=== PATIENT | female | born 1960 | race Caucasian/White ===

== ENCOUNTER 2018-07-29 12:31 | Emergency (ER) | payer MEDICAID ==
[~2018-07-29] VITALS: Ht 157.5 cm; Wt 77.1 kg
--- NOTE | 2018-07-29 12:50 | NUR ---
patient seen and examine by Dr. Vazquez
--- NOTE | 2018-07-29 13:19 | NUR ---
Taken down for ct.
--- NOTE | 2018-07-29 13:22 | NUR ---
pt. back from CT.
[2018-07-29 13:31] LABS: BASOPHILS % (AUTO) 0.6 % (0.0-2.0); EOSINOPHILS # (AUTO) 0.1 K/uL (0.0-0.7); HEMOGLOBIN 14.1 g/dL (10.9-14.3); LYMPHOCYTES # (AUTO) 1.9 K/uL (20.0-40.0); LYMPHOCYTES % (AUTO) 34.7 % (20.5-51.5); MEAN CORPUSCULAR HEMOGLOBIN 30.5 uug (24.7-32.8); MEAN CORPUSCULAR HGB CONC 34 g/dL (32.3-35.6); MEAN CORPUSCULAR VOLUME 90.6 fL (75.5-95.3); MONOCYTES # (AUTO) 0.4 K/uL (2.0-10.0); MONOCYTES % (AUTO) 7.6 % (0.0-11.0); NEUTROPHILS % (AUTO) 55.1 % (38.5-71.5); PLATELET COUNT (AUTO) 216 K/uL (179-408); RED BLOOD CELL COUNT(AUTO) 4.64 MIL/uL (3.63-4.92); WHITE BLOOD COUNT (AUTO) 5.4 K/uL (3.8-11.8)
[2018-07-29 13:38] LABS: CREATININE 0.6 mg/dL (0.6-1.3); POTASSIUM 4.5 mmol/L (3.5-5.1)
[2018-07-29 14:59] VITALS: BP 141/89
--- NOTE | 2018-07-29 15:00 | NUR ---
DCD instructions and prescription given to pt. who verbalized understanding. pt. left room AAOX4 Vitals stable no c/of pain
== END 2018-07-29 15:01 | disposition home or self-care (01) ==
LOC: ER 12:31
DX: H53.30 Unspecified disorder of binocular vision (principal); R53.1 Weakness; R11.0 Nausea
CPT/HCPCS: 36415; 70030-TC; 70450; 85025; 93005; A4663

== ENCOUNTER 2018-12-18 19:44 | Emergency (ER) | payer MEDICAID ==
[~2018-12-18] VITALS: Ht 154.9 cm; Wt 77.1 kg
--- NOTE | 2018-12-18 20:20 | NUR ---
Dr. Busch at bedside for MSE.
[2018-12-18 20:21] LABS: *BILIRUBIN,URIN NEGATIVE (NEGATIVE); *BLOOD, URINE 3+ (NEGATIVE); *COLOR,URINE PINK (YELLOW); *KETONES,URINE NEGATIVE (NEGATIVE); *UROBILINOGEN,URINE 0.2 E.U./dl (NORMAL); LEUKOCYTE ESTERASE ,URINE TRACE (NEGATIVE); NITRITE, URINE NEGATIVE (NEGATIVE); PH,URINE 6.5 (5.0-8.0); UGLUCOSE NEGATIVE (NEGATIVE)
[2018-12-18 20:29] LABS: *CLARITY,URINE HAZY (CLEAR)
[2018-12-18 20:30] LABS: RBC,URINE 80-100 /HPF (0-3)
[2018-12-18 20:31] LABS: SQUAMOUS EPITHELIAL CELL,UR FEW /HPF (NONE SEEN)
--- NOTE | 2018-12-18 20:45 | NUR ---
Pt out of ER for CT.
--- NOTE | 2018-12-18 20:54 | NUR ---
Pt back to ER from CT.
[2018-12-18] MEDS ORDERED: SULFAMETH/TRIMETH 800/160 MG TABLET PO ONE (21:00)
--- NOTE | 2018-12-18 21:04 | NUR ---
Patient discharged to home in stable conditon. Written and verbal after care instructions given. Patient verbalizes understanding of instructions. Pt ambulated out of ER with steady gait, no acute signs of distress, VSS, all belongings taken.
[2018-12-18 21:05] VITALS: BP 145/90
[2018-12-18] MEDS ORDERED: SULFAMETH/TRIMETH 800/160 MG TABLET ONE (21:05)
== END 2018-12-18 21:07 | disposition home or self-care (01) ==
LOC: ER 19:45
DX: N20.0 Calculus of kidney (principal); N39.0 Urinary tract infection, site not specified; F17.200 Nicotine dependence, unspecified, uncomplicated
CPT/HCPCS: A4663

== ENCOUNTER 2019-04-04 20:35 | Emergency (ER) | payer MEDICAID, OTHER ==
[~2019-04-04] VITALS: Ht 157.5 cm; Wt 77.1 kg
--- NOTE | 2019-04-04 20:53 | NUR ---
Dr. Ren at [facility] for [facility].
[2019-04-04] MEDS ORDERED: ONDANSETRON ODT 4 MG TAB.RAPDIS ONE (20:59)
[2019-04-04] MEDS ORDERED: HYDROCODONE/APAP 5-325MG TABLET ONE (20:59)
[2019-04-04] MEDS ORDERED: HYDROCODONE/APAP 5-325MG TABLET PO ONE (21:00)
[2019-04-04] MEDS ORDERED: ONDANSETRON ODT 4 MG TAB.RAPDIS SL ONE (21:00)
--- NOTE | 2019-04-04 21:01 | NUR ---
Xray at bedside.
[2019-04-04 21:30] VITALS: BP 119/80
== END 2019-04-04 21:30 | disposition home or self-care (01) ==
LOC: ER 20:42
DX: S57.82XA Crushing injury of left forearm, initial encounter (principal); F17.290 Nicotine dependence, other tobacco product, uncomplicated; Z71.6 Tobacco abuse counseling; W23.0XXA Caught, crushed, jammed, or pinched between moving objects, initial encounter; Y93.89 Activity, other specified; Y92.89 Other specified places as the place of occurrence of the external cause; Y99.8 Other external cause status
CPT/HCPCS: 73090; A4663; Q0162

== ENCOUNTER 2019-05-02 13:07 | Emergency (ER) | payer OTHER ==
[~2019-05-02] VITALS: Ht 154.9 cm; Wt 72.6 kg
--- NOTE | 2019-05-02 13:25 | NUR ---
Patient seen by Dr Kelsey. for Female Urogenital Problems. Patient is A&O x3
[2019-05-02 13:36] LABS: *BILIRUBIN,URIN NEGATIVE (NEGATIVE); *CLARITY,URINE CLEAR (CLEAR); *COLOR,URINE YELLOW (YELLOW); *KETONES,URINE NEGATIVE (NEGATIVE); *UROBILINOGEN,URINE 0.2 E.U./dl (NORMAL); LEUKOCYTE ESTERASE ,URINE 1+ (NEGATIVE); NITRITE, URINE NEGATIVE (NEGATIVE); PH,URINE 6.5 (5.0-8.0); UGLUCOSE NEGATIVE (NEGATIVE)
[2019-05-02 13:39] LABS: *BLOOD, URINE TRACE (NEGATIVE)
[2019-05-02 13:43] LABS: BACTERIA,URINE FEW /HPF (NONE SEEN); RBC,URINE NONE SEEN /HPF (0-3); SQUAMOUS EPITHELIAL CELL,UR FEW /HPF (NONE SEEN); WBC,URINE 0-3 /HPF (0-3)
[2019-05-02 13:49] LABS: BASOPHILS % (AUTO) 0.6 % (0.0-2.0); HEMATOCRIT 41.5 % (31.2-41.9); HEMOGLOBIN 13.8 g/dL (10.9-14.3); LYMPHOCYTES # (AUTO) 1.4 K/uL (20.0-40.0); LYMPHOCYTES % (AUTO) 36.9 % (20.5-51.5); MEAN CORPUSCULAR HGB CONC 33 g/dL (32.3-35.6); MEAN CORPUSCULAR VOLUME 93.1 fL (75.5-95.3); MONOCYTES # (AUTO) 0.3 K/uL (2.0-10.0); MONOCYTES % (AUTO) 8.7 % (0.0-11.0); NEUTROPHILS % (AUTO) 52.8 % (38.5-71.5); PLATELET COUNT (AUTO) 193 K/uL (179-408); RED BLOOD CELL COUNT(AUTO) 4.46 MIL/uL (3.63-4.92); WHITE BLOOD COUNT (AUTO) 3.8 K/uL (3.8-11.8)
--- NOTE | 2019-05-02 13:50 | NUR ---
Associate Property Manager assumes care- patient isAOx4, waiting for U/S@this time.
[2019-05-02 13:54] LABS: CREATININE 0.6 mg/dL (0.6-1.3); POTASSIUM 3.9 mmol/L (3.5-5.1)
--- NOTE | 2019-05-02 14:12 | NUR ---
Patient discharged home with Rx for pain per Dr Kelsey. Pain medication offered, and patient refused stating that she has to go to work after this visit. MD aware. Patient stable, no distress noted. No SOB or respiratory distress observed or reported by patient.
== END 2019-05-02 14:21 | disposition home or self-care (01) ==
LOC: ER 13:07
DX: M54.5 Low back pain (principal); F17.200 Nicotine dependence, unspecified, uncomplicated
CPT/HCPCS: 36415; 85025; 87086; A4663

== ENCOUNTER 2019-06-12 19:05 | Emergency (ER) | payer OTHER ==
[~2019-06-12] VITALS: Ht 154.9 cm; Wt 77.1 kg
--- NOTE | 2019-06-12 19:25 | NUR ---
Dr. Beckham at bedside for MSE.
[2019-06-12] MEDS ORDERED: IV NORMAL SALINE 1000 ML BAG IV ONE (20:00)
[2019-06-12 20:01] LABS: BASOPHILS # (AUTO) 0.1 K/uL (0.0-8.0); BASOPHILS % (AUTO) 1.1 % (0.0-2.0); EOSINOPHILS # (AUTO) 0.1 K/uL (0.0-0.7); EOSINOPHILS % (AUTO) 1.5 % (0.0-7.0); HEMATOCRIT 41.6 % (31.2-41.9); HEMOGLOBIN 13.9 g/dL (10.9-14.3); LYMPHOCYTES # (AUTO) 2.1 K/uL (20.0-40.0); LYMPHOCYTES % (AUTO) 37.9 % (20.5-51.5); MEAN CORPUSCULAR HEMOGLOBIN 31.2 uug (24.7-32.8); MEAN CORPUSCULAR HGB CONC 33 g/dL (32.3-35.6); MEAN CORPUSCULAR VOLUME 93.3 fL (75.5-95.3); MONOCYTES # (AUTO) 0.6 K/uL (2.0-10.0); MONOCYTES % (AUTO) 10.3 % (0.0-11.0); NEUTROPHILS # (AUTO) 2.7 K/uL (1.8-8.9); NEUTROPHILS % (AUTO) 49.2 % (38.5-71.5); PLATELET COUNT (AUTO) 211 K/uL (179-408); RED BLOOD CELL COUNT(AUTO) 4.45 MIL/uL (3.63-4.92); WHITE BLOOD COUNT (AUTO) 5.5 K/uL (3.8-11.8)
--- NOTE | 2019-06-12 20:10 | NUR ---
Xray at bedside.
[2019-06-12 20:14] LABS: POTASSIUM 4.2 mmol/L (3.5-5.1)
[2019-06-12 20:20] LABS: BILIRUBIN,DIRECT 0.1 mg/dL (0.0-0.2); BILIRUBIN,TOTAL 0.6 mg/dL (0.2-1.0); TOTAL PROTEIN, SERUM 6.8 g/dL (6.4-8.2)
[2019-06-12 20:37] LABS: *BILIRUBIN,URIN NEGATIVE (NEGATIVE); *COLOR,URINE YELLOW (YELLOW); *KETONES,URINE NEGATIVE (NEGATIVE); *UROBILINOGEN,URINE 0.2 E.U./dl (NORMAL); LEUKOCYTE ESTERASE ,URINE TRACE (NEGATIVE); NITRITE, URINE NEGATIVE (NEGATIVE); UGLUCOSE NEGATIVE (NEGATIVE)
[2019-06-12 21:26] LABS: *BLOOD, URINE TRACE (NEGATIVE); *CLARITY,URINE SLIGHTLY HAZY (CLEAR)
[2019-06-12 21:28] LABS: BACTERIA,URINE FEW /HPF (NONE SEEN); MUCUS,URINE FEW /LPF (0-FEW); SQUAMOUS EPITHELIAL CELL,UR MODERATE /HPF (NONE SEEN)
--- NOTE | 2019-06-12 21:54 | NUR ---
Patient discharged to home in stable conditon. Written and verbal after care instructions given. Patient verbalizes understanding of instructions. Pt ambulated out of ER with steady gait, no acute signs of distress, VSS, all belongings taken, IV site discontinued.
[2019-06-12 22:01] VITALS: BP 145/80
== END 2019-06-12 22:01 | disposition home or self-care (01) ==
LOC: ER 19:08
DX: M54.5 Low back pain (principal); M54.6 Pain in thoracic spine; M62.838 Other muscle spasm; D35.00 Benign neoplasm of unspecified adrenal gland; R31.29 Other microscopic hematuria; F17.200 Nicotine dependence, unspecified, uncomplicated
CPT/HCPCS: 36415; 70030-TC; 71045; 83690; 85025; 87086; 93005; A4663; J7030

== ENCOUNTER 2019-06-29 12:12 | Emergency (ER) | payer OTHER ==
[~2019-06-29] VITALS: Ht 154.9 cm; Wt 77.1 kg
[2019-06-29] MEDS ORDERED: ACET-73 PO (12:33)
[2019-06-29] MEDS ORDERED: ASPI81TA31 PO (12:33)
--- NOTE | 2019-06-29 12:33 | NUR ---
DEAN ORNELAS at the bedside for MSE.
[2019-06-29 13:15] LABS: BASOPHILS # (AUTO) 0.1 K/uL (0.0-8.0); BASOPHILS % (AUTO) 1.3 % (0.0-2.0); EOSINOPHILS # (AUTO) 0.1 K/uL (0.0-0.7); EOSINOPHILS % (AUTO) 1.4 % (0.0-7.0); HEMATOCRIT 41.7 % (31.2-41.9); HEMOGLOBIN 14.1 g/dL (10.9-14.3); LYMPHOCYTES # (AUTO) 1.5 K/uL (20.0-40.0); MEAN CORPUSCULAR HEMOGLOBIN 30.9 uug (24.7-32.8); MEAN CORPUSCULAR HGB CONC 34 g/dL (32.3-35.6); MEAN CORPUSCULAR VOLUME 91.2 fL (75.5-95.3); MONOCYTES # (AUTO) 0.3 K/uL (2.0-10.0); MONOCYTES % (AUTO) 7.8 % (0.0-11.0); NEUTROPHILS # (AUTO) 1.8 K/uL (1.8-8.9); NEUTROPHILS % (AUTO) 48.5 % (38.5-71.5); PLATELET COUNT (AUTO) 202 K/uL (179-408); RED BLOOD CELL COUNT(AUTO) 4.58 MIL/uL (3.63-4.92); WHITE BLOOD COUNT (AUTO) 3.8 K/uL (3.8-11.8)
[2019-06-29 13:21] LABS: CREATININE 0.7 mg/dL (0.6-1.3); POTASSIUM 4.2 mmol/L (3.5-5.1)
[2019-06-29 13:36] LABS: BILIRUBIN,DIRECT 0.2 mg/dL (0.0-0.2); BILIRUBIN,TOTAL 0.9 mg/dL (0.2-1.0); TOTAL PROTEIN, SERUM 7.2 g/dL (6.4-8.2)
[2019-06-29 13:52] VITALS: BP 151/89
--- NOTE | 2019-06-29 13:52 | NUR ---
Patient discharged to home in stable conditon. Written and verbal after care instructions given. Patient verbalizes understanding of instructions.
== END 2019-06-29 13:53 | disposition home or self-care (01) ==
LOC: ER 12:13
DX: I49.3 Ventricular premature depolarization (principal); R00.2 Palpitations; G89.29 Other chronic pain; M25.552 Pain in left hip; F17.200 Nicotine dependence, unspecified, uncomplicated; Z79.82 Long term (current) use of aspirin; Z79.899 Other long term (current) drug therapy
CPT/HCPCS: 36415; 70030-TC; 71045; 84443; 85025; 93005; A4663

== ENCOUNTER 2019-10-24 12:55 | Emergency (ER) | payer OTHER ==
[~2019-10-24] VITALS: Ht 157.5 cm; Wt 73.5 kg
[~2019-10-24 12:55] MED LIST: ACET-73 PO; ASPI81TA31 PO
--- NOTE | 2019-10-24 13:15 | NUR ---
PATIENT WAS MSE BY DR ZARAGOZA IN ROOM 02A. PATIENT A & O X4.
--- NOTE | 2019-10-24 13:29 | NUR ---
Patient discharged to home in stable condition. Written and verbal after care instructions given. Patient verbalizes understanding of instructions. Stressed follow up or return to ER for worsening s/s.
[2019-10-24 13:33] VITALS: BP 150/70
== END 2019-10-24 13:35 | disposition home or self-care (01) ==
LOC: ER 12:58
DX: K57.92 Diverticulitis of intestine, part unspecified, without perforation or abscess without bleeding (principal); F17.200 Nicotine dependence, unspecified, uncomplicated; M16.12 Unilateral primary osteoarthritis, left hip; Z79.82 Long term (current) use of aspirin
CPT/HCPCS: A4663

== ENCOUNTER 2021-09-15 09:47 | Emergency (ER) | payer OTHER ==
[~2021-09-15] VITALS: Ht 154.9 cm; Wt 74.8 kg
--- NOTE | 2021-09-15 09:58 | NUR ---
Patient ambulatory, alert and orientedx4 complaints of pain on urination for 4 days and lower back 8/10. History of kidney stone 3 years ago. Denies nausea/vomiting, abdominal pain. Vitals stable.
--- NOTE | 2021-09-15 10:01 | NUR ---
UA sent to lab.
--- NOTE | 2021-09-15 10:02 | NUR ---
MD at bedside, ,medical screeening exam in process.
[2021-09-15 10:22] LABS: *BLOOD, URINE 2+ (NEGATIVE); *COLOR,URINE Orange (YELLOW); *KETONES,URINE 1+ (NEGATIVE); LEUKOCYTE ESTERASE ,URINE 3+ (NEGATIVE); NITRITE, URINE POSITIVE (NEGATIVE)
[2021-09-15 10:26] LABS: *BILIRUBIN,URIN 2+ (NEGATIVE); UGLUCOSE 1+ (NEGATIVE)
[2021-09-15 10:27] LABS: *CLARITY,URINE SLIGHTLY HAZY (CLEAR)
[2021-09-15] MEDS ORDERED: HYDROCODONE/APAP 5-325MG TABLET ONE (10:36)
[2021-09-15] MEDS ORDERED: HYDROCODONE/APAP 5-325MG TABLET PO ONE (10:45)
[2021-09-15 10:48] LABS: BACTERIA,URINE MODERATE /HPF (NONE SEEN); MUCUS,URINE FEW /LPF (0-FEW); RBC,URINE 20-50 /HPF (0-3); SQUAMOUS EPITHELIAL CELL,UR FEW /HPF (NONE SEEN)
[2021-09-15 10:51] LABS: HEMATOCRIT 47.2 % (31.2-41.9); MEAN CORPUSCULAR HEMOGLOBIN 30.8 uug (24.7-32.8); PLATELET COUNT (AUTO) 205 K/uL (179-408)
[2021-09-15 11:02] LABS: BILIRUBIN,TOTAL 1.2 mg/dL (0.2-1.0); CREATININE 0.8 mg/dL (0.6-1.3); TOTAL PROTEIN, SERUM 7.4 g/dL (6.4-8.2)
[2021-09-15] MEDS ORDERED: CEphaleXIN 500 MG CAPSULE PO ONE (11:30)
[2021-09-15] MEDS ORDERED: ALBU8.5H8 INH ×2 (11:34→11:44)
[2021-09-15] MEDS ORDERED: HYDR-4209 PO ×2 (11:34→11:44)
[2021-09-15] MEDS ORDERED: CEPH500C2 PO ×2 (11:34→11:44)
--- NOTE | 2021-09-15 11:45 | NUR ---
Patient discharged to home in stable condition. Steady gait. Written and verbal after care instructions given. Patient verbalizes understanding of instructions. Instructed patient not to drive. States that she will be picked up by daughter. Stressed follow up or return to ER for worsening s/s.
[2021-09-15 11:51] VITALS: BP 139/98
[2021-09-15] MEDS ORDERED: CEphaleXIN 500 MG CAPSULE ONE (11:57)
== END 2021-09-15 12:00 | disposition home or self-care (01) ==
LOC: ER 09:47
DX: N39.0 Urinary tract infection, site not specified (principal); R31.29 Other microscopic hematuria; F17.210 Nicotine dependence, cigarettes, uncomplicated; M19.90 Unspecified osteoarthritis, unspecified site
CPT/HCPCS: 36415; 85025; 87077; 87086; A4663

== ENCOUNTER 2021-09-25 19:52 | Emergency (ER) | payer OTHER ==
[~2021-09-25] VITALS: Ht 154.9 cm; Wt 74.8 kg
[~2021-09-25 19:52] MED LIST changes: +ALBU8.5H8 INH; +CEPH500C2 PO; +HYDR-4209 PO
--- NOTE | 2021-09-25 20:25 | NUR ---
After being triaged, patient was sent back to waiting room due to no beds available in the ER.
[2021-09-25 20:40] LABS: *BILIRUBIN,URIN NEGATIVE (NEGATIVE); *BLOOD, URINE 3+ (NEGATIVE); *COLOR,URINE AMBER (YELLOW); *KETONES,URINE NEGATIVE (NEGATIVE); *UROBILINOGEN,URINE 0.2 E.U./dl (NORMAL); LEUKOCYTE ESTERASE ,URINE 1+ (NEGATIVE); NITRITE, URINE POSITIVE (NEGATIVE); PH,URINE 5.5 (5.0-8.0); UGLUCOSE TRACE (NEGATIVE)
[2021-09-25 20:48] LABS: *CLARITY,URINE HAZY (CLEAR)
[2021-09-25 20:50] LABS: BACTERIA,URINE FEW /HPF (NONE SEEN); SQUAMOUS EPITHELIAL CELL,UR FEW /HPF (NONE SEEN)
--- NOTE | 2021-09-25 21:41 | NUR ---
Patient went up to incoming freight clerk's window and stated "I feel better, i don't want to be seen anymore. I will be going home now." Patient left without being seen by ERMD.
[2021-09-26] MEDS ORDERED: LEVO500T90 PO (10:44)
[2021-09-26] MEDS ORDERED: ACET-2154 PO (10:44)
[2021-09-26] MEDS ORDERED: ONDA4TAB5 PO (10:44)
== END 2021-09-25 21:41 | disposition left against medical advice (07) ==
LOC: ER 19:54
DX: Z00.00 Encounter for general adult medical examination without abnormal findings (principal)
CPT/HCPCS: 87086; A4663

== ENCOUNTER 2021-09-26 09:45 | Emergency (ER) | payer OTHER ==
[~2021-09-26] VITALS: Ht 154.9 cm; Wt 74.8 kg
[2021-09-26] MEDS ORDERED: ACETAMINOPHEN 325 MG TABLET PO ONE (10:00)
[2021-09-26] MEDS ORDERED: ACETAMINOPHEN 325 MG TABLET ONE (10:01)
--- NOTE | 2021-09-26 10:05 | NUR ---
DR SOLORZANO AT BEDSIDE FOR EVALUATION. URINE SPECIMEN SENT TO LAB.
[2021-09-26 10:36] LABS: *BILIRUBIN,URIN NEGATIVE (NEGATIVE); *BLOOD, URINE 1+ (NEGATIVE); *CLARITY,URINE CLEAR (CLEAR); *COLOR,URINE YELLOW (YELLOW); *KETONES,URINE NEGATIVE (NEGATIVE); *UROBILINOGEN,URINE 0.2 E.U./dl (NORMAL); LEUKOCYTE ESTERASE ,URINE NEGATIVE (NEGATIVE); NITRITE, URINE POSITIVE (NEGATIVE); UGLUCOSE NEGATIVE (NEGATIVE)
[2021-09-26] MEDS ORDERED: ONDA4TAB5 PO (10:44)
[2021-09-26] MEDS ORDERED: LEVO500T90 PO (10:44)
[2021-09-26] MEDS ORDERED: ACET-2154 PO (10:44)
[2021-09-26 12:39] LABS: BACTERIA,URINE MODERATE /HPF (NONE SEEN)
[2021-09-26 12:40] LABS: CALCIUM CARBONATE CRYSTALS,UR NONE SEEN /HPF (NONE SEEN); CALCIUM OXALATE CRYSTALS,UR FEW /HPF (NONE SEEN); CALCIUM PHOSPHATE CRYSTALS,UR NN /HPF (NONE SEEN); COARSE GRANULAR CASTS,URINE NONE SEEN /LPF; CYSTINE CRYSTALS,URINE NONE SEEN /HPF (NONE SEEN); FATTY CASTS,URINE NONE SEEN /LPF (NONE SEEN); MUCUS,URINE NONE SEEN /LPF (0-FEW); RED BLOOD CELL CASTS,URINE NONE SEEN /LPF (NONE SEEN); SPERM,URINE NONE SEEN /HPF (NONE SEEN); SQUAMOUS EPITHELIAL CELL,UR FEW /HPF (NONE SEEN); TRICHOMONAS,URINE NONE SEEN /HPF (NONE SEEN); TRIPLE PHOSPHATE CRYSTAL,UR NONE SEEN /HPF (NONE SEEN); TYROSINE CRYSTAL,URINE NONE SEEN /HPF (NONE SEEN); URIC ACID CRYSTALS,URINE NONE SEEN /HPF (NONE SEEN); URINE AMORPHOUS PHOSPHATES NONE SEEN /HPF; URINE AMORPHOUS URATE NONE SEEN /HPF; WAXY CASTS,URINE NONE SEEN /LPF (NONE SEEN); YEAST,URINE NONE SEEN /HPF (NONE SEEN)
== END 2021-09-26 10:50 | disposition home or self-care (01) ==
LOC: ER 09:45
DX: N39.0 Urinary tract infection, site not specified (principal); B96.20 Unspecified Escherichia coli [E. coli] as the cause of diseases classified elsewhere; Z16.11 Resistance to penicillins; Z16.29 Resistance to other single specified antibiotic; Z87.442 Personal history of urinary calculi; R10.9 Unspecified abdominal pain
CPT/HCPCS: 87086; A4663

== ENCOUNTER 2022-01-22 10:45 | Emergency (ER) | payer OTHER ==
[~2022-01-22] VITALS: Ht 154.9 cm; Wt 68.0 kg
[~2022-01-22 10:45] MED LIST changes: +ACET-2154 PO; +LEVO500T90 PO; +ONDA4TAB5 PO
--- NOTE | 2022-01-22 11:28 | NUR ---
patient refusing IV at this time. made aware.
[2022-01-22 11:33] LABS: HEMATOCRIT 43.7 % (31.2-41.9); MEAN CORPUSCULAR HEMOGLOBIN 30.9 uug (24.7-32.8); MEAN CORPUSCULAR VOLUME 92.1 fL (75.5-95.3); PLATELET COUNT (AUTO) 208 K/uL (179-408)
[2022-01-22 11:41] LABS: CARBON DIOXIDE 30 mmol/L (21-32); CHLORIDE 105 mmol/L (98-107); CREATININE 0.8 mg/dL (0.6-1.3); GLUCOSE 93 mg/dL (74-106); POTASSIUM 4.5 mmol/L (3.5-5.1); UREA NITROGEN, BLOOD 16 mg/dL (7-18)
[2022-01-22 11:46] LABS: BILIRUBIN,DIRECT 0.3 mg/dL (0.0-0.2); BILIRUBIN,TOTAL 1.1 mg/dL (0.2-1.0); TOTAL PROTEIN, SERUM 7.3 g/dL (6.4-8.2)
--- NOTE | 2022-01-22 12:16 | NUR ---
@bedside, pending results and disposition
--- NOTE | 2022-01-22 12:27 | NUR ---
Patient does not wish to proceed with medical care recommended by Dr. Hopkins. Patient given information related to possible complications, up to and including , which could occur as a result of leaving the hospital at this time. Patient verbalized understanding of risks involved due to leaving against medical advice. Patient signed AMA form.
== END 2022-01-22 12:29 | disposition left against medical advice (07) ==
LOC: ER 10:45
DX: R09.1 Pleurisy (principal); Z20.822 Contact with and (suspected) exposure to COVID-19; Z96.642 Presence of left artificial hip joint; Z53.29 Procedure and treatment not carried out because of patient's decision for other reasons; M19.90 Unspecified osteoarthritis, unspecified site; Z87.19 Personal history of other diseases of the digestive system; J45.909 Unspecified asthma, uncomplicated; F17.211 Nicotine dependence, cigarettes, in remission
CPT/HCPCS: 36415; 71045; 83690; 84484; 85025; 93005; A4663

== ENCOUNTER 2023-04-05 08:49 | Emergency (ER) | payer BC, OTHER ==
[~2023-04-05] VITALS: Ht 154.9 cm; Wt 74.8 kg
[2023-04-05 08:56] VITALS: O2SAT 97
[2023-04-05] MEDS ORDERED: FAMOTIDINE. 20 MG/2 ML VIAL IV ONE (09:30)
[2023-04-05] MEDS ORDERED: diphenhydrAMINE 50 MG/1 ML VIAL IV ONE (09:30)
[2023-04-05] MEDS ORDERED: methylPREDNISolone SOD SUCC 125 MG/2 ML VIAL IV ONE (09:30)
== END 2023-04-05 09:29 | disposition left against medical advice (07) ==
LOC: ER 08:49
DX: J02.9 Acute pharyngitis, unspecified (principal); T78.40XA Allergy, unspecified, initial encounter; F17.200 Nicotine dependence, unspecified, uncomplicated; Z79.82 Long term (current) use of aspirin; Z79.899 Other long term (current) drug therapy; Z98.890 Other specified postprocedural states; X58.XXXA Exposure to other specified factors, initial encounter
CPT/HCPCS: A4606; A4663